=== PATIENT | male | born 1935 | race African-American/Black ===

== ENCOUNTER 2017-06-27 13:16 | Emergency (ER) | payer MEDICARE ==
[~2017-06-27] VITALS: Ht 180.3 cm; Wt 80.0 kg
[~2017-06-27 13:16] MED LIST: AMLO10TA80 PO; ASPI-1159 PO; BACL-141 PO; CLON1PAT8 TD; HYDR-4133 PO; LOSA100T14 PO; METO100T5 PO; MULT1TAB11 PO; OMEP20CA10 PO; OXYB5TAB11 PO; SIMV20TA6 PO; TRAM50TA3 PO; TRAZ-129 PO; VENL-180 PO
[2017-06-27] MEDS ORDERED: KETOROLAC 30MG/ML VIAL IV ONE (13:45)
[2017-06-27] MEDS ORDERED: ACETAMINOPHEN 325MG TABLET PO ONE (15:45)
[2017-06-27 16:30] VITALS: BP 172/112
== END 2017-06-27 17:55 | disposition home or self-care (01) ==
LOC: ER 13:16
DX: R51 Headache (principal); M54.5 Low back pain; M54.2 Cervicalgia; M25.551 Pain in right hip; I10 Essential (primary) hypertension; Z79.82 Long term (current) use of aspirin; Z88.0 Allergy status to penicillin
CPT/HCPCS: 70450; 72125; 72170; 96374; 99284; J1885

== ENCOUNTER 2017-07-01 10:52 | Emergency (ER) | payer MEDICARE ==
[~2017-07-01] VITALS: Ht 175.3 cm; Wt 85.0 kg
[2017-07-01] MEDS ORDERED: KETOROLAC 30MG/ML VIAL IV STA (11:09)
[2017-07-01] MEDS ORDERED: SODIUM CHLORIDE 0.9% 1,000 ML IV ONE (11:09)
[2017-07-01] MEDS ORDERED: METOCLOPRAMIDE HCL 10MG/2ML VIAL IV ONE (11:15)
[2017-07-01] MEDS ORDERED: TRAMADOL 50MG TABLET PO ONE (11:15)
[2017-07-01 15:22] VITALS: BP 148/86
== END 2017-07-01 15:23 | disposition home or self-care (01) ==
LOC: ER 10:52
DX: R51 Headache (principal); W08.XXXA Fall from other furniture, initial encounter; Y93.89 Activity, other specified; Y92.89 Other specified places as the place of occurrence of the external cause; F41.9 Anxiety disorder, unspecified; I51.9 Heart disease, unspecified; J45.909 Unspecified asthma, uncomplicated; E11.9 Type 2 diabetes mellitus without complications; I10 Essential (primary) hypertension; Z88.0 Allergy status to penicillin; Z88.6 Allergy status to analgesic agent; Z79.82 Long term (current) use of aspirin; Z86.73 Personal history of transient ischemic attack (TIA), and cerebral infarction without residual deficits
CPT/HCPCS: 96361; 96374; 96375; 99285; J1885; J2765; J7030

== ENCOUNTER 2017-12-17 17:04 | Inpatient (IN) | payer MEDICARE ==
[~2017-12-17] VITALS: Ht 177.8 cm; Wt 74.8 kg
[~2017-12-17 17:04] MED LIST changes: +METO100T16 PO; -METO100T5 PO
[2017-12-17] MEDS ORDERED: LORAZEPAM 1MG TABLET PO ONE (20:00)
[2017-12-17 20:58] LABS: BASOPHILS % 0.5 % (0.0-2.0); CHLORIDE 107 mEq/L (98-107); EOSINOPHILS % 0.9 % (0.0-5.0); HEMATOCRIT. 37.8 % (42.0-52.0); HEMOGLOBIN. 12.4 g/dL (14.0-18.0); LYMPHOCYTES % 21.2 % (20.0-50.0); MEAN CORPUSCULAR HEMOGLOBIN 27.9 pg (28.0-32.0); MEAN PLATELET VOLUME 6.9 fl (7.4-10.4); MONOCYTES % 7.1 % (2.0-8.0); NEUTROPHILS % 70.3 % (40.0-76.0); PLATELET 269 x1000/uL (130-400); RED BLOOD CELL COUNT 4.45 mill/uL (4.7-6.1); RED CELL DISTRIBUTION WIDTH 16.1 % (11.6-14.6)
[2017-12-17 21:03] LABS: ETHANOL BLOOD < 10 mg/dL
[2017-12-18] MEDS ORDERED: LORAZEPAM 2MG/ML CPJ IV ONE (01:45)
[2017-12-18] MEDS ORDERED: CALCIUM CHLORIDE 1GM/10ML SYR IV SCH (02:36)
[2017-12-18] MEDS ORDERED: DEXTROSE 50% WATER 50ML SYRINGE IV SCH (02:36)
[2017-12-18] MEDS ORDERED: INSULIN REGULAR (HUMULIN R) 300UNITS/3ML IV SCH (02:36)
[2017-12-18] MEDS ORDERED: SODIUM BICARBONATE 8.4% 1 MEQ/ML 50ML SYR IV SCH (02:36)
[2017-12-18] MEDS ORDERED: DEXTROSE 50% WATER 50ML SYRINGE IV ONE (03:00)
[2017-12-18 05:10] LABS: CLARITY URINE CLEAR (CLEAR); COLOR URINE YELLOW (YELLOW); KETONES URINE NEGATIVE (NEGATIVE); LEUKOCYTE ESTERASE URINE NEGATIVE (NEGATIVE); NITRITE URINE NEGATIVE (NEGATIVE); OCCULT BLOOD URINE NEGATIVE (NEGATIVE); PH URINE 8.5 (4.5-8.0); PROTEIN URINE 2+ (NEGATIVE); SPECIFIC GRAVITY URINE 1.014 (1.005-1.030)
[2017-12-18 05:15] LABS: *AMPHETAMINES SCREEN URINE NEGATIVE (NEGATIVE); *BARBITURATES SCREEN URINE NEGATIVE (NEGATIVE); *BENZODIAZEPINES SCREEN URINE NEGATIVE (NEGATIVE); *COCAINE SCREEN URINE NEGATIVE (NEGATIVE); CANNABINOID URINE SCREEN NEGATIVE (NEGATIVE); METHADONE URINE SCREEN NEGATIVE (NEGATIVE); OPIATES URINE SCREEN NEGATIVE (NEGATIVE); PHENCYCLIDINE URINE SCREEN NEGATIVE (NEGATIVE)
[2017-12-18 09:00] VITALS: BP 157/80
[2017-12-18 12:05] VITALS: BP 176/106
[2017-12-18] MEDS ORDERED: IPRATROPIUM/ALBUTEROL 0.5-3(2.5)MG/3ML NEB INH PRN (12:15)
[2017-12-18] MEDS ORDERED: HYDROCODONE/ACETAMINOPHEN 5/325MG TABLET PO PRN (12:15)
[2017-12-18] MEDS ORDERED: TRAZODONE HCL 50MG TABLET PO PRN (12:15)
[2017-12-18] MEDS ORDERED: ONDANSETRON HCL 4MG/2ML VIAL IV PRN (12:15)
[2017-12-18] MEDS ORDERED: ACETAMINOPHEN 325MG TABLET PO PRN (12:15)
[2017-12-18] MEDS ORDERED: ASPIRIN 81MG EC TABLET PO SCH (13:30)
[2017-12-18] MEDS: TRAMADOL 50MG TABLET PO PRN ×2 (13:44→19:44)
[2017-12-18] MEDS: AMLODIPINE 10MG TABLET PO SCH (13:44)
[2017-12-18] MEDS: LOSARTAN POTASSIUM 100 MG TABLET PO SCH (13:44)
[2017-12-18] MEDS: OXYBUTYNIN CHLORIDE 5MG TABLET PO SCH (13:45)
[2017-12-18] MEDS: OMEPRAZOLE 20MG CAPSULE EXTENDED RELEASE PO SCH (13:45)
[2017-12-18] MEDS: METOPROLOL TARTRATE 100MG TABLET PO SCH ×2 (13:45→19:42)
[2017-12-18] MEDS: HYDRALAZINE HCL 10MG TABLET PO SCH ×2 (13:45→19:43)
[2017-12-18] MEDS ORDERED: DEXTROSE 50% WATER 50ML SYRINGE IV PRN (14:45)
[2017-12-18 16:00] VITALS: BP 189/106
[2017-12-18 16:32] VITALS: BP 157/80
[2017-12-18 16:55] LABS: AMMONIA 39 uMol/L (<32)
[2017-12-18] MEDS: BLOOD SUGAR DIAGNOSTIC STRIP TEST SCH ×2 (17:01→19:57)
[2017-12-18] MEDS: INSULIN LISPRO 100 UNITS/ML SUBCUT SCH ×2 (17:05→19:57)
[2017-12-18] MEDS: ENOXAPARIN 30MG/0.3ML SYR SUBCUT SCH (17:24)
[2017-12-18] MEDS: CLONIDINE 0.1MG TABLET PO PRN (17:36)
[2017-12-18 17:41] LABS: VITAMIN B12 SERUM 773 pg/mL (211-911)
[2017-12-18] MEDS ORDERED: LACTULOSE 20G/30ML UDC PO NR (19:30)
[2017-12-18] MEDS: SODIUM CHLORIDE 0.9% 1,000 ML IV SCH (19:47)
[2017-12-18 20:00] VITALS: BP 187/95
[2017-12-19] VITALS (7 sets, daily range): BP systolic 152–190; BP diastolic 78–110
[2017-12-19] MEDS: CLONIDINE 0.1MG TABLET PO PRN ×2 (00:05→05:57)
[2017-12-19] MEDS: TRAMADOL 50MG TABLET PO PRN ×2 (00:05→06:00)
[2017-12-19] MEDS: OMEPRAZOLE 20MG CAPSULE EXTENDED RELEASE PO SCH (05:56)
[2017-12-19] MEDS: BLOOD SUGAR DIAGNOSTIC STRIP TEST SCH ×4 (06:23→21:00)
[2017-12-19 06:34] LABS: INR 1.1; PROTHROMBIN TIME 11.3 sec (9.4-11.6)
[2017-12-19 06:36] LABS: BASOPHILS % 0.8 % (0.0-2.0); EOSINOPHILS % 4.1 % (0.0-5.0); HEMATOCRIT 37.1 % (42.0-52.0); HEMATOCRIT. 37.1 % (42.0-52.0); HEMOGLOBIN 11.8 g/dL (14.0-18.0); HEMOGLOBIN. 11.8 g/dL (14.0-18.0); LYMPHOCYTES % 36.9 % (20.0-50.0); MEAN CORPUSCULAR HEMOGLOBIN 27.2 pg (28.0-32.0); MEAN CORPUSCULAR VOLUME 85.4 fL (80.0-94.0); NEUTROPHILS % 47.2 % (40.0-76.0); PLATELET 256 x1000/uL (130-400); RED BLOOD CELL COUNT 4.35 mill/uL (4.7-6.1); RED CELL DISTRIBUTION WIDTH 16.6 % (11.6-14.6)
[2017-12-19 06:48] LABS: CHLORIDE 107 mEq/L (98-107)
[2017-12-19 06:49] LABS: AMMONIA 26 uMol/L (<32)
[2017-12-19 06:59] LABS: HDL CHOLESTEROL 84 mg/dL (40-59); LDL CHOLESTEROL 54 mg/dL (5-100); T4 FREE 1.02 ng/dL (0.76-1.46)
[2017-12-19] MEDS: INSULIN LISPRO 100 UNITS/ML SUBCUT SCH ×4 (07:15→21:00)
[2017-12-19] MEDS: ASPIRIN 81MG EC TABLET PO SCH (08:28)
[2017-12-19] MEDS: AMLODIPINE 10MG TABLET PO SCH (08:29)
[2017-12-19] MEDS: LOSARTAN POTASSIUM 100 MG TABLET PO SCH (08:29)
[2017-12-19] MEDS: METOPROLOL TARTRATE 100MG TABLET PO SCH ×2 (08:29→20:38)
[2017-12-19] MEDS: OXYBUTYNIN CHLORIDE 5MG TABLET PO SCH (08:29)
[2017-12-19] MEDS: VENLAFAXINE HCL 75MG TABLET PO SCH (08:29)
[2017-12-19] MEDS: HYDRALAZINE HCL 10MG TABLET PO SCH ×2 (08:29→20:38)
[2017-12-19] MEDS: HYDRALAZINE 20MG/ML VIAL IV PRN (12:34)
[2017-12-19] MEDS: LORAZEPAM 2MG/ML CPJ IV PRN ×2 (14:06→20:35)
[2017-12-19] MEDS: ENOXAPARIN 30MG/0.3ML SYR SUBCUT SCH (14:09)
[2017-12-19] MEDS: SODIUM CHLORIDE 0.9% 1,000 ML IV SCH (16:45)
[2017-12-19] MEDS ORDERED: HALOPERIDOL LACTATE 5MG/ML VIAL IM NR ×2 (21:00→23:30)
[2017-12-20] VITALS (7 sets, daily range): BP systolic 151–199; BP diastolic 82–117
[2017-12-20] MEDS: HYDRALAZINE 20MG/ML VIAL IV PRN (01:07)
[2017-12-20] MEDS: OMEPRAZOLE 20MG CAPSULE EXTENDED RELEASE PO SCH (05:55)
[2017-12-20] MEDS: BLOOD SUGAR DIAGNOSTIC STRIP TEST SCH ×2 (05:56→11:50)
[2017-12-20] MEDS: CLONIDINE 0.1MG TABLET PO PRN (06:25)
[2017-12-20] MEDS: INSULIN LISPRO 100 UNITS/ML SUBCUT SCH ×2 (07:50→12:50)
[2017-12-20] MEDS ORDERED: RISPERIDONE 0.5MG TABLET PO SCH ×2 (09:00→21:00)
[2017-12-20] MEDS: OXYBUTYNIN CHLORIDE 5MG TABLET PO SCH (09:51)
[2017-12-20] MEDS: ASPIRIN 81MG EC TABLET PO SCH (09:51)
[2017-12-20] MEDS: VENLAFAXINE HCL 75MG TABLET PO SCH (09:52)
[2017-12-20] MEDS: METOPROLOL TARTRATE 100MG TABLET PO SCH (09:52)
[2017-12-20] MEDS: LOSARTAN POTASSIUM 100 MG TABLET PO SCH (09:52)
[2017-12-20] MEDS: AMLODIPINE 10MG TABLET PO SCH (09:52)
[2017-12-20 10:19] LABS: HEMOGLOBIN 12.9 g/dL (14.0-18.0); MEAN CORPUSCULAR HEMOGLOBIN 28.1 pg (28.0-32.0); MEAN CORPUSCULAR VOLUME 84.8 fL (80.0-94.0); PLATELET 272 x1000/uL (130-400); RED BLOOD CELL COUNT 4.59 mill/uL (4.7-6.1); RED CELL DISTRIBUTION WIDTH 16.2 % (11.6-14.6)
[2017-12-20] MEDS: SODIUM CHLORIDE 0.9% 1,000 ML IV SCH (11:30)
[2017-12-20] MEDS: HYDRALAZINE HCL 10MG TABLET PO SCH (11:50)
[2017-12-20] MEDS: ENOXAPARIN 30MG/0.3ML SYR SUBCUT SCH (16:34)
== END 2017-12-20 17:30 | DRG 682 ==
LOC: ER 17:37 → 6WST 12-18 00:27 → ENRESERV 12-18 07:43
PROVIDERS: ADMIT Internal Medicine; ATTEND Internal Medicine
DX: N17.9 Acute kidney failure, unspecified (principal); G92 Toxic encephalopathy; E72.20 Disorder of urea cycle metabolism, unspecified; E11.22 Type 2 diabetes mellitus with diabetic chronic kidney disease; E87.5 Hyperkalemia; M62.82 Rhabdomyolysis; N18.4 Chronic kidney disease, stage 4 (severe); G30.9 Alzheimer's disease, unspecified; D64.9 Anemia, unspecified; F32.9 Major depressive disorder, single episode, unspecified; G89.4 Chronic pain syndrome; F02.80 Dementia in other diseases classified elsewhere, unspecified severity, without behavioral disturbance, psychotic disturbance, mood disturbance, and anxiety; F41.9 Anxiety disorder, unspecified; I12.9 Hypertensive chronic kidney disease with stage 1 through stage 4 chronic kidney disease, or unspecified chronic kidney disease; R41.0 Disorientation, unspecified; J45.909 Unspecified asthma, uncomplicated; M13.0 Polyarthritis, unspecified; Z86.73 Personal history of transient ischemic attack (TIA), and cerebral infarction without residual deficits; Z88.0 Allergy status to penicillin; Z88.6 Allergy status to analgesic agent; Z79.82 Long term (current) use of aspirin; Z79.899 Other long term (current) drug therapy
CPT/HCPCS: 36415; 70450; 71045; 76775; 80048; 80053; 80061; 80305; 81003; 82140; 82550; 82607; 82962; 84439; 84443; 84484; 85025; 85027; 85610; 86592; 93005; 93306; 96374; 96375; 97116; 97162; 99285; C1893; G0482; J0360; J1630; J1650; J1815; J2060; J3490; J7030

== ENCOUNTER 2018-07-01 10:02 | Emergency (ER) | payer MEDICARE ==
[~2018-07-01] VITALS: Ht 180.3 cm; Wt 76.0 kg
[~2018-07-01 10:02] MED LIST changes: -BACL-141 PO; -HYDR-4133 PO; -LOSA100T14 PO; -METO100T16 PO; -MULT1TAB11 PO; -TRAZ-129 PO; +TRAZ-212 PO
[2018-07-01] MEDS ORDERED: ONDANSETRON HCL 4MG/2ML INJ IV STA (10:22)
[2018-07-01] MEDS ORDERED: MORPHINE SULFATE 4 MG/ML CPJ (NOT FOR IM USE) IV STA (10:22)
[2018-07-01] MEDS ORDERED: SODIUM CHLORIDE 0.9% 1,000 ML IV ONE (10:22)
[2018-07-01 11:47] LABS: BASOPHILS % 0.6 % (0.0-2.0); EOSINOPHILS % 2.2 % (0.0-5.0); HEMATOCRIT. 30.1 % (42.0-52.0); HEMOGLOBIN. 9.9 g/dL (14.0-18.0); LYMPHOCYTES % 24.7 % (20.0-50.0); MEAN CORPUSCULAR HEMOGLOBIN 28.2 pg (28.0-32.0); MEAN CORPUSCULAR VOLUME 85.8 fL (80.0-94.0); MEAN PLATELET VOLUME 7.1 fl (7.4-10.4); MONOCYTES % 10.3 % (2.0-8.0); NEUTROPHILS % 62.2 % (40.0-76.0); PLATELET 253 x1000/uL (130-400); RED CELL DISTRIBUTION WIDTH 15.9 % (11.6-14.6)
[2018-07-01 11:52] LABS: CHLORIDE 105 mEq/L (98-107); CLARITY URINE CLOUDY (CLEAR); COLOR URINE DARK YELLOW (YELLOW); KETONES URINE TRACE (NEGATIVE); LEUKOCYTE ESTERASE URINE NEGATIVE (NEGATIVE); NITRITE URINE NEGATIVE (NEGATIVE); OCCULT BLOOD URINE 2+ (NEGATIVE); PROTEIN URINE 2+ (NEGATIVE); SPECIFIC GRAVITY URINE 1.017 (1.005-1.030)
[2018-07-01 15:54] VITALS: BP 130/66
== END 2018-07-01 15:56 | disposition home or self-care (01) ==
LOC: ER 10:02
DX: R10.84 Generalized abdominal pain (principal); E11.22 Type 2 diabetes mellitus with diabetic chronic kidney disease; I12.9 Hypertensive chronic kidney disease with stage 1 through stage 4 chronic kidney disease, or unspecified chronic kidney disease; N18.9 Chronic kidney disease, unspecified; D63.1 Anemia in chronic kidney disease; K57.90 Diverticulosis of intestine, part unspecified, without perforation or abscess without bleeding; Z88.0 Allergy status to penicillin; Z79.82 Long term (current) use of aspirin; Z98.1 Arthrodesis status
CPT/HCPCS: 36415; 71045; 74018; 74176; 80053; 81003; 83690; 85025; 93005; 96361; 96374; 96375; 99285; J2270; J2405; J7030; A4315

== ENCOUNTER 2018-09-04 08:36 | Inpatient (IN) | payer MEDICARE ==
[~2018-09-04] VITALS: Ht 182.9 cm; Wt 89.4 kg
[2018-09-04] MEDS ORDERED: KETOROLAC 15MG/ML VIAL IV ONE (10:30)
[2018-09-04] MEDS ORDERED: ONDANSETRON HCL 4MG/2ML INJ IV STA (10:30)
[2018-09-04] MEDS ORDERED: SODIUM CHLORIDE 0.9% 1,000 ML IV ONE (10:30)
[2018-09-04 12:01] LABS: CLARITY URINE CLEAR (CLEAR); COLOR URINE YELLOW (YELLOW); KETONES URINE NEGATIVE (NEGATIVE); LEUKOCYTE ESTERASE URINE 2+ (NEGATIVE); NITRITE URINE NEGATIVE (NEGATIVE); OCCULT BLOOD URINE 2+ (NEGATIVE); PROTEIN URINE 2+ (NEGATIVE); SPECIFIC GRAVITY URINE 1.009 (1.005-1.030); UROBILINOGEN URINE 0.2 E.U./dL (0.2-1.0)
[2018-09-04] MEDS ORDERED: LEVOFLOXACIN 750MG PREMIX 150 ML IV ONE (13:00)
[2018-09-04 13:41] LABS: BASOPHILS % 0.7 % (0.0-2.0); EOSINOPHILS % 1.3 % (0.0-5.0); HEMATOCRIT. 33.6 % (42.0-52.0); LYMPHOCYTES % 19.8 % (20.0-50.0); MEAN CORPUSCULAR VOLUME 85.8 fL (80.0-94.0); MEAN PLATELET VOLUME 7.1 fl (7.4-10.4); NEUTROPHILS % 70.2 % (40.0-76.0); PLATELET 263 x1000/uL (130-400); RED BLOOD CELL COUNT 3.91 mill/uL (4.7-6.1); RED CELL DISTRIBUTION WIDTH 15.8 % (11.6-14.6)
[2018-09-04 13:50] LABS: INR 1.1; PROTHROMBIN TIME 10.7 sec (9.1-11.1)
[2018-09-04 14:04] LABS: CHLORIDE 106 mEq/L (98-107)
[2018-09-04] MEDS ORDERED: MORPHINE SULFATE 4 MG/ML CPJ (NOT FOR IM USE) IV ONE (14:30)
[2018-09-04] MEDS ORDERED: ONDANSETRON HCL 4MG/2ML INJ IV ONE (14:30)
[2018-09-04] MEDS ORDERED: LORAZEPAM 2MG/ML CPJ IV ONE (14:30)
[2018-09-04] MEDS ORDERED: LORAZEPAM 0.5MG TABLET PO PRN (18:15)
[2018-09-04] MEDS ORDERED: ONDANSETRON HCL 4MG/2ML INJ IV PRN (18:15)
[2018-09-04] MEDS ORDERED: DIPHENHYDRAMINE 50MG/ML VIAL IV PRN (18:15)
[2018-09-04] MEDS ORDERED: NA PHOS,M-B/NA PHOS,DI-BA ENEMA 118ML PR PRN (18:15)
[2018-09-04] MEDS ORDERED: MAGNESIUM/ALUMINUM HYDROXIDE/SIMETHICONE 30ML UDC PO PRN (18:15)
[2018-09-04] MEDS ORDERED: GUAIFENESIN 200MG/10ML SUGAR FREE UDC PO PRN (18:15)
[2018-09-04] MEDS ORDERED: ACETAMINOPHEN 650MG SUPP PR PRN (18:15)
[2018-09-04 20:29] LABS: BG BASE EXCESS -6.8 mmol/L (-2.0-2.0); BG CARBOXYHEMOGLOBIN 1.1 % (0.5-1.5); BG DEOXYHEMOGLOBIN 2.4 % (0.0-5.0); BG FRACTION INSPIRED OXYGEN 21; BG HCO3 ACT 16.7 mmol/L (22.0-26.0); BG METHEMOGLOBIN 0.3 % (0.0-1.5); BG OXYGEN SATURATION 97.6 % (92.0-98.5); BG OXYHEMOGLOBIN 96.2 % (94.0-97.0); BG PH 7.408 (7.350-7.450); BG PO2 100.9 mmHg (75.0-100.0); BG SAMPLE SITE LEFT RADIAL; BG TOTAL HEMOGLOBIN 10.8 g/dL (12.0-18.0); BG VENT MODE ROOM AIR
[2018-09-04 23:30] VITALS: BP 167/75
[2018-09-05] VITALS (8 sets, daily range): BP systolic 169–214; BP diastolic 84–130
[2018-09-05] MEDS: ACETAMINOPHEN 325MG TABLET PO PRN ×2 (00:10→01:29)
[2018-09-05] MEDS: SODIUM CHLORIDE 0.45% 1,000 ML IV SCH ×2 (00:10→13:43)
[2018-09-05] MEDS: DOCUSATE SODIUM 100MG CAPSULE PO PRN (01:29)
[2018-09-05] MEDS: CLONIDINE 0.1MG TABLET PO PRN ×2 (06:08→16:32)
[2018-09-05] MEDS: ENOXAPARIN 30MG/0.3ML SYR SUBCUT SCH (06:08)
[2018-09-05 08:17] LABS: BASOPHILS % 0.6 % (0.0-2.0); EOSINOPHILS % 3.3 % (0.0-5.0); HEMATOCRIT. 30.7 % (42.0-52.0); HEMOGLOBIN. 10.1 g/dL (14.0-18.0); LYMPHOCYTES % 23.6 % (20.0-50.0); MEAN CORPUSCULAR HEMOGLOBIN 28.4 pg (28.0-32.0); MEAN CORPUSCULAR VOLUME 86.1 fL (80.0-94.0); MEAN PLATELET VOLUME 7.3 fl (7.4-10.4); MONOCYTES % 9.8 % (2.0-8.0); NEUTROPHILS % 62.7 % (40.0-76.0); PLATELET 212 x1000/uL (130-400); RED BLOOD CELL COUNT 3.57 mill/uL (4.7-6.1); RED CELL DISTRIBUTION WIDTH 16.2 % (11.6-14.6)
[2018-09-05 08:36] LABS: METHADONE URINE SCREEN NEGATIVE (NEGATIVE); OPIATES URINE SCREEN NEGATIVE (NEGATIVE)
[2018-09-05 08:37] LABS: *AMPHETAMINES SCREEN URINE NEGATIVE (NEGATIVE); *BARBITURATES SCREEN URINE NEGATIVE (NEGATIVE); *BENZODIAZEPINES SCREEN URINE NEGATIVE (NEGATIVE); CANNABINOID URINE SCREEN NEGATIVE (NEGATIVE); PHENCYCLIDINE URINE SCREEN NEGATIVE (NEGATIVE)
[2018-09-05 08:38] LABS: *COCAINE SCREEN URINE NEGATIVE (NEGATIVE)
[2018-09-05] MEDS: ASPIRIN 81MG EC TABLET PO SCH (08:38)
[2018-09-05 08:59] LABS: CHLORIDE 110 mEq/L (98-107)
[2018-09-05 09:06] LABS: LDL CHOLESTEROL 41 mg/dL (5-100)
[2018-09-05 09:07] LABS: HDL CHOLESTEROL 66 mg/dL (40-59)
[2018-09-05] MEDS: LEVOFLOXACIN 250MG PREMIX 50 ML IV SCH (13:42)
[2018-09-05] MEDS: HYDRALAZINE HCL 50MG TABLET PO SCH ×2 (13:43→19:57)
[2018-09-05] MEDS: MORPHINE SULFATE 10MG/5ML ORAL SOLN UDC PO PRN ×2 (13:44→19:58)
[2018-09-05] MEDS: CLONIDINE 0.3MG TABLET PO SCH (19:57)
[2018-09-06] VITALS (8 sets, daily range): BP systolic 161–219; BP diastolic 99–116
[2018-09-06] MEDS ORDERED: LABETALOL HCL 20MG/4ML CARPUJECT IV PRN
[2018-09-06] MEDS: HYDRALAZINE HCL 50MG TABLET PO SCH ×3 (04:42→21:01)
[2018-09-06] MEDS: CLONIDINE 0.3MG TABLET PO SCH ×3 (04:42→21:02)
[2018-09-06 07:04] LABS: BASOPHILS % 0.7 % (0.0-2.0); HEMATOCRIT. 31.4 % (42.0-52.0); LYMPHOCYTES % 20.5 % (20.0-50.0); MEAN CORPUSCULAR HEMOGLOBIN 27.9 pg (28.0-32.0); MEAN CORPUSCULAR VOLUME 87.9 fL (80.0-94.0); MEAN PLATELET VOLUME 7.9 fl (7.4-10.4); MONOCYTES % 11.4 % (2.0-8.0); NEUTROPHILS % 64.4 % (40.0-76.0); PLATELET 161 x1000/uL (130-400); RED BLOOD CELL COUNT 3.58 mill/uL (4.7-6.1); RED CELL DISTRIBUTION WIDTH 16.5 % (11.6-14.6)
[2018-09-06] MEDS: ASPIRIN 81MG EC TABLET PO SCH (08:11)
[2018-09-06] MEDS: ENOXAPARIN 30MG/0.3ML SYR SUBCUT SCH (08:11)
[2018-09-06 08:15] LABS: CHLORIDE 109 mEq/L (98-107)
[2018-09-06] MEDS: LEVOFLOXACIN 250MG PREMIX 50 ML IV SCH (13:26)
[2018-09-06] MEDS ORDERED: SODIUM BICARBONATE 8.4% 1 MEQ/ML 50ML SYR IV NR (14:30)
[2018-09-06] MEDS: LABETALOL HCL 100MG TABLET PO SCH (21:01)
[2018-09-07] VITALS (8 sets, daily range): BP systolic 151–216; BP diastolic 73–112
[2018-09-07] MEDS: ACETAMINOPHEN 325MG TABLET PO PRN (03:40)
[2018-09-07] MEDS: CLONIDINE 0.3MG TABLET PO SCH ×3 (05:10→21:07)
[2018-09-07] MEDS: HYDRALAZINE HCL 50MG TABLET PO SCH ×3 (05:10→21:06)
[2018-09-07] MEDS: ENOXAPARIN 30MG/0.3ML SYR SUBCUT SCH (08:43)
[2018-09-07] MEDS: ASPIRIN 81MG EC TABLET PO SCH (08:43)
[2018-09-07] MEDS: LABETALOL HCL 100MG TABLET PO SCH ×2 (08:43→20:42)
[2018-09-07] MEDS: DOCUSATE SODIUM 100MG CAPSULE PO PRN (08:52)
[2018-09-07 13:19] LABS: HEMATOCRIT 29.9 % (42.0-52.0); HEMOGLOBIN 9.8 g/dL (14.0-18.0); MEAN CORPUSCULAR HEMOGLOBIN 28.1 pg (28.0-32.0); MEAN CORPUSCULAR VOLUME 85.7 fL (80.0-94.0); PLATELET 246 x1000/uL (130-400); RED BLOOD CELL COUNT 3.49 mill/uL (4.7-6.1); RED CELL DISTRIBUTION WIDTH 15.7 % (11.6-14.6)
[2018-09-07] MEDS: AMLODIPINE 5MG TABLET PO SCH (14:11)
[2018-09-07] MEDS: LEVOFLOXACIN 250MG PREMIX 50 ML IV SCH (14:12)
[2018-09-07] MEDS: IPRATROPIUM/ALBUTEROL 0.5-3(2.5)MG/3ML NEB INH PRN ×2 (15:49→20:33)
[2018-09-07] MEDS: HYDRALAZINE 20MG/ML VIAL IV PRN (18:42)
[2018-09-07] MEDS: SODIUM BICARBONATE 650 MG TABLET PO SCH (20:42)
[2018-09-07] MEDS ORDERED: LEVO500T2 MT (21:46)
[2018-09-08] VITALS (7 sets, daily range): BP systolic 131–160; BP diastolic 76–94
[2018-09-08] MEDS: CLONIDINE 0.3MG TABLET PO SCH ×2 (05:33→14:46)
[2018-09-08] MEDS: HYDRALAZINE HCL 50MG TABLET PO SCH ×2 (05:34→14:46)
[2018-09-08 07:00] LABS: HEMATOCRIT 28.8 % (42.0-52.0); HEMOGLOBIN 9.5 g/dL (14.0-18.0); MEAN CORPUSCULAR HEMOGLOBIN 28.1 pg (28.0-32.0); MEAN CORPUSCULAR VOLUME 85.5 fL (80.0-94.0); PLATELET 244 x1000/uL (130-400); RED BLOOD CELL COUNT 3.36 mill/uL (4.7-6.1); RED CELL DISTRIBUTION WIDTH 15.5 % (11.6-14.6)
[2018-09-08] MEDS: ASPIRIN 81MG EC TABLET PO SCH (08:56)
[2018-09-08] MEDS: ENOXAPARIN 30MG/0.3ML SYR SUBCUT SCH (08:57)
[2018-09-08] MEDS: SODIUM BICARBONATE 650 MG TABLET PO SCH ×2 (08:57→17:08)
[2018-09-08] MEDS: AMLODIPINE 5MG TABLET PO SCH (08:57)
[2018-09-08] MEDS: LABETALOL HCL 100MG TABLET PO SCH (08:57)
[2018-09-08] MEDS: DOCUSATE SODIUM 100MG CAPSULE PO PRN (08:58)
[2018-09-08] MEDS: LEVOFLOXACIN 250MG PREMIX 50 ML IV SCH (12:32)
[2018-09-08] MEDS ORDERED: LACTULOSE 20G/30ML UDC PO NR (13:30)
[2018-09-08] MEDS: DOCUSATE SODIUM 100MG CAPSULE PO SCH ×2 (14:46→17:08)
[2018-09-08] MEDS: HYDRALAZINE 20MG/ML VIAL IV PRN (17:08)
== END 2018-09-08 19:35 | disposition home health service (06) | DRG 699 ==
LOC: ER 09:03 → 8WST 14:38 → ENRESERV 21:46
PROVIDERS: ADMIT Internal Medicine; ATTEND Internal Medicine
PROC: 02HV33Z Insertion of Infusion Device into Superior Vena Cava, Percutaneous Approach (ICD-10-PCS; principal; 2018-09-07)
PROC: B518ZZA Fluoroscopy of Superior Vena Cava, Guidance (ICD-10-PCS; 2018-09-07)
PROC: B548ZZA Ultrasonography of Superior Vena Cava, Guidance (ICD-10-PCS; 2018-09-07)
DX: T83.518A Infection and inflammatory reaction due to other urinary catheter, initial encounter (principal); G93.40 Encephalopathy, unspecified; N17.9 Acute kidney failure, unspecified; N39.0 Urinary tract infection, site not specified; E87.3 Alkalosis; D64.9 Anemia, unspecified; R80.9 Proteinuria, unspecified; R73.9 Hyperglycemia, unspecified; I12.9 Hypertensive chronic kidney disease with stage 1 through stage 4 chronic kidney disease, or unspecified chronic kidney disease; N18.9 Chronic kidney disease, unspecified; B96.89 Other specified bacterial agents as the cause of diseases classified elsewhere; F03.90 Unspecified dementia, unspecified severity, without behavioral disturbance, psychotic disturbance, mood disturbance, and anxiety; J45.909 Unspecified asthma, uncomplicated; R33.9 Retention of urine, unspecified; K59.00 Constipation, unspecified; K40.90 Unilateral inguinal hernia, without obstruction or gangrene, not specified as recurrent; Y84.6 Urinary catheterization as the cause of abnormal reaction of the patient, or of later complication, without mention of misadventure at the time of the procedure; Z86.73 Personal history of transient ischemic attack (TIA), and cerebral infarction without residual deficits; Z90.5 Acquired absence of kidney; Z98.1 Arthrodesis status; Z85.46 Personal history of malignant neoplasm of prostate; Z88.0 Allergy status to penicillin; Z88.6 Allergy status to analgesic agent; Z79.82 Long term (current) use of aspirin; Z79.899 Other long term (current) drug therapy; Y92.89 Other specified places as the place of occurrence of the external cause
CPT/HCPCS: 36415; 36569; 36600; 71045; 74176; 76770; 76937; 77001; 80048; 80061; 80305; 82140; 82375; 82805; 85027; 87077; 87186; 93005; 96365; 96375; 97116; 97162; 99285; C1725; C1893; J0360; J1200; J1650; J1885; J1956; J2060; J2405; J3490; J7030; J7040; J7620; A4315

== ENCOUNTER 2018-12-20 05:50 | Inpatient (IN) | payer MEDICARE ==
[~2018-12-20] VITALS: Ht 177.8 cm; Wt 72.1 kg
[~2018-12-20 05:50] MED LIST changes: +LEVO500T2 MT
[2018-12-20] MEDS ORDERED: SODIUM CHLORIDE 0.9% 1,000 ML IV ONE (06:42)
[2018-12-20] MEDS ORDERED: FENTANYL CITRATE/PF 50MCG/ML 2ML VIAL IV ONE ×3 (07:00→10:45)
[2018-12-20 07:22] LABS: CHLORIDE 112 mEq/L (98-107)
[2018-12-20 07:47] LABS: HEMATOCRIT. 32.9 % (42.0-52.0); HEMOGLOBIN. 10.7 g/dL (14.0-18.0); MEAN CORPUSCULAR HEMOGLOBIN 27.3 pg (28.0-32.0); MEAN CORPUSCULAR VOLUME 84.1 fL (80.0-94.0); MEAN PLATELET VOLUME 7.1 fl (7.4-10.4); PLATELET 257 x1000/uL (130-400); RED BLOOD CELL COUNT 3.92 mill/uL (4.7-6.1); RED CELL DISTRIBUTION WIDTH 17.4 % (11.6-14.6)
[2018-12-20 08:30] LABS: PLATELET ESTIMATE NORMAL
[2018-12-20 08:58] LABS: CLARITY URINE CLEAR (CLEAR); COLOR URINE YELLOW (YELLOW); KETONES URINE NEGATIVE (NEGATIVE); LEUKOCYTE ESTERASE URINE NEGATIVE (NEGATIVE); NITRITE URINE NEGATIVE (NEGATIVE); OCCULT BLOOD URINE 1+ (NEGATIVE); PH URINE 7.5 (4.5-8.0); PROTEIN URINE 2+ (NEGATIVE); SPECIFIC GRAVITY URINE 1.011 (1.005-1.030); UROBILINOGEN URINE 0.2 E.U./dL (0.2-1.0)
[2018-12-20] MEDS ORDERED: ONDANSETRON HCL 4MG/2ML INJ IV PRN (12:00)
[2018-12-20] MEDS ORDERED: DIPHENHYDRAMINE 50MG/ML VIAL IV PRN (12:00)
[2018-12-20] MEDS ORDERED: MAGNESIUM/ALUMINUM HYDROXIDE/SIMETHICONE 30ML UDC PO PRN (12:00)
[2018-12-20] MEDS ORDERED: IPRATROPIUM/ALBUTEROL 0.5-3(2.5)MG/3ML NEB INH PRN (12:00)
[2018-12-20] MEDS ORDERED: GUAIFENESIN 200MG/10ML SUGAR FREE UDC PO PRN (12:00)
[2018-12-20] MEDS: CLONIDINE 0.1MG TABLET PO SCH ×2 (12:54→21:54)
[2018-12-20] MEDS: OMEPRAZOLE 20MG CAPSULE EXTENDED RELEASE PO SCH (13:09)
[2018-12-20] MEDS: AMLODIPINE 10MG TABLET PO SCH (13:09)
[2018-12-20] MEDS: ASPIRIN 81MG TABLET PO SCH (13:09)
[2018-12-20] MEDS: CLONIDINE 0.1MG TABLET PO PRN (13:10)
[2018-12-20] MEDS: DEXT 5%/0.45% NACL 1000ML 1,000 ML IV SCH (13:16)
[2018-12-20] MEDS ORDERED: LEVOFLOXACIN 500MG PREMIX 100 ML IV SCH (14:00)
[2018-12-20] MEDS ORDERED: METRONIDAZOLE 500MG TABLET PO SCH (14:00)
[2018-12-20 14:32] LABS: *AMPHETAMINES SCREEN URINE NEGATIVE (NEGATIVE); *BARBITURATES SCREEN URINE NEGATIVE (NEGATIVE); *BENZODIAZEPINES SCREEN URINE NEGATIVE (NEGATIVE); *COCAINE SCREEN URINE NEGATIVE (NEGATIVE); METHADONE URINE SCREEN NEGATIVE (NEGATIVE); OPIATES URINE SCREEN NEGATIVE (NEGATIVE); PHENCYCLIDINE URINE SCREEN NEGATIVE (NEGATIVE)
[2018-12-20 14:33] LABS: CANNABINOID URINE SCREEN NEGATIVE (NEGATIVE)
[2018-12-20 16:00] VITALS: BP 216/111
[2018-12-20] MEDS: NITROGLYCERIN OINT 1GM/INCH UDPKT TD SCH (16:11)
[2018-12-20 16:15] VITALS: BP 206/111
[2018-12-20 16:47] VITALS: BP 180/99
[2018-12-20 17:00] VITALS: BP 180/92
[2018-12-20] MEDS ORDERED: HYDRALAZINE 20MG/ML VIAL IV PRN (17:45)
[2018-12-20] MEDS: ACETAMINOPHEN 325MG TABLET PO PRN (18:13)
[2018-12-20 19:00] VITALS: BP 161/88
[2018-12-20 20:00] VITALS: BP 144/89
[2018-12-20] MEDS ORDERED: MEDICATION NOT ON FORMULARY EA (Simvastatin 20 MG) PO SCH (21:00)
[2018-12-20] MEDS ORDERED: HYDROCODONE/ACETAMINOPHEN 5/325MG TABLET PO NR (21:15)
[2018-12-20] MEDS: METRONIDAZOLE 500MG TABLET PO SCH (21:54)
[2018-12-20] MEDS: ATORVASTATIN CALCIUM 10MG TABLET PO SCH (21:55)
[2018-12-20] MEDS: HYDRALAZINE HCL 50MG TABLET PO SCH (21:55)
[2018-12-20] MEDS: HEPARIN 5000 UNITS/ML VIAL SUBCUT SCH (21:56)
[2018-12-21] VITALS: BP 138/60
[2018-12-21] MEDS: NITROGLYCERIN OINT 1GM/INCH UDPKT TD SCH ×4 (00:11→17:29)
[2018-12-21 04:00] VITALS: BP 118/60
[2018-12-21] MEDS: HYDRALAZINE HCL 50MG TABLET PO SCH ×3 (05:16→20:40)
[2018-12-21] MEDS: CLONIDINE 0.1MG TABLET PO SCH ×3 (05:16→20:40)
[2018-12-21] MEDS: DEXT 5%/0.45% NACL 1000ML 1,000 ML IV SCH ×2 (05:40→20:41)
[2018-12-21 05:54] LABS: BASOPHILS % 0.8 % (0.0-2.0); EOSINOPHILS % 4.4 % (0.0-5.0); HEMATOCRIT. 28.5 % (42.0-52.0); HEMOGLOBIN. 9.1 g/dL (14.0-18.0); LYMPHOCYTES % 35.8 % (20.0-50.0); MEAN CORPUSCULAR HEMOGLOBIN 27.3 pg (28.0-32.0); MEAN CORPUSCULAR VOLUME 85.6 fL (80.0-94.0); MEAN PLATELET VOLUME 7.5 fl (7.4-10.4); MONOCYTES % 10.4 % (2.0-8.0); NEUTROPHILS % 48.6 % (40.0-76.0); PLATELET 212 x1000/uL (130-400); RED BLOOD CELL COUNT 3.33 mill/uL (4.7-6.1); RED CELL DISTRIBUTION WIDTH 17.2 % (11.6-14.6)
[2018-12-21 06:00] VITALS: BP 118/60
[2018-12-21] MEDS: OMEPRAZOLE 20MG CAPSULE EXTENDED RELEASE PO SCH (06:11)
[2018-12-21] MEDS: ACETAMINOPHEN 325MG TABLET PO PRN ×2 (06:26→13:59)
[2018-12-21 07:12] LABS: CHLORIDE 112 mEq/L (98-107)
[2018-12-21 07:22] LABS: HDL CHOLESTEROL 63 mg/dL (40-59); LDL CHOLESTEROL 52 mg/dL (5-100)
[2018-12-21 07:24] LABS: T4 FREE 0.97 ng/dL (0.76-1.46)
[2018-12-21 08:00] VITALS: BP 155/94
[2018-12-21] MEDS: HEPARIN 5000 UNITS/ML VIAL SUBCUT SCH ×2 (08:40→20:40)
[2018-12-21] MEDS: METRONIDAZOLE 500MG TABLET PO SCH ×2 (08:40→20:40)
[2018-12-21] MEDS: AMLODIPINE 10MG TABLET PO SCH (08:40)
[2018-12-21] MEDS: ASPIRIN 81MG TABLET PO SCH (08:40)
[2018-12-21 16:00] VITALS: BP 168/91
[2018-12-21] MEDS: CLONIDINE 0.1MG TABLET PO PRN (17:29)
[2018-12-21 20:00] VITALS: BP 158/87
[2018-12-21] MEDS: ATORVASTATIN CALCIUM 10MG TABLET PO SCH (20:40)
[2018-12-21] MEDS ORDERED: EPOETIN ALFA 10000UNITS/ML VIAL SUBCUT NR (21:00)
[2018-12-22] VITALS: BP 146/83
[2018-12-22] MEDS: LORAZEPAM 0.5MG TABLET PO PRN (00:25)
[2018-12-22] MEDS: NITROGLYCERIN OINT 1GM/INCH UDPKT TD SCH ×4 (00:25→18:46)
[2018-12-22 04:00] VITALS: BP 132/71
[2018-12-22] MEDS: CLONIDINE 0.1MG TABLET PO SCH ×3 (05:39→20:18)
[2018-12-22] MEDS: DOCUSATE SODIUM 100MG CAPSULE PO PRN ×2 (05:40→10:10)
[2018-12-22] MEDS: HYDRALAZINE HCL 50MG TABLET PO SCH ×3 (05:40→20:18)
[2018-12-22] MEDS: OMEPRAZOLE 20MG CAPSULE EXTENDED RELEASE PO SCH (05:40)
[2018-12-22 08:00] VITALS: BP 170/90
[2018-12-22] MEDS: METRONIDAZOLE 500MG TABLET PO SCH ×2 (09:53→20:17)
[2018-12-22] MEDS: HEPARIN 5000 UNITS/ML VIAL SUBCUT SCH ×2 (09:53→20:17)
[2018-12-22] MEDS: ASPIRIN 81MG TABLET PO SCH (09:53)
[2018-12-22] MEDS: AMLODIPINE 10MG TABLET PO SCH (09:54)
[2018-12-22] MEDS: ACETAMINOPHEN 325MG TABLET PO PRN (10:10)
[2018-12-22 12:00] VITALS: BP 147/86
[2018-12-22 12:34] LABS: BASOPHILS % 0.5 % (0.0-2.0); EOSINOPHILS % 4.3 % (0.0-5.0); HEMATOCRIT. 28.6 % (42.0-52.0); HEMOGLOBIN. 9.2 g/dL (14.0-18.0); LYMPHOCYTES % 30.5 % (20.0-50.0); MEAN CORPUSCULAR HEMOGLOBIN 27.4 pg (28.0-32.0); MEAN CORPUSCULAR VOLUME 84.8 fL (80.0-94.0); MEAN PLATELET VOLUME 7.1 fl (7.4-10.4); MONOCYTES % 11.1 % (2.0-8.0); NEUTROPHILS % 53.6 % (40.0-76.0); PLATELET 216 x1000/uL (130-400); RED BLOOD CELL COUNT 3.37 mill/uL (4.7-6.1); RED CELL DISTRIBUTION WIDTH 17.3 % (11.6-14.6)
[2018-12-22] MEDS: DEXT 5%/0.45% NACL 1000ML 1,000 ML IV SCH (12:50)
[2018-12-22] MEDS: LEVOFLOXACIN 250MG PREMIX 50 ML IV SCH (14:57)
[2018-12-22 16:00] VITALS: BP 138/78
[2018-12-22 20:00] VITALS: BP 160/89
[2018-12-22] MEDS: ATORVASTATIN CALCIUM 10MG TABLET PO SCH (20:17)
[2018-12-23] VITALS (13 sets, daily range): BP systolic 138–202; BP diastolic 73–116
[2018-12-23] MEDS: NITROGLYCERIN OINT 1GM/INCH UDPKT TD SCH ×5 (00:11→18:24)
[2018-12-23] MEDS: CLONIDINE 0.1MG TABLET PO SCH ×3 (05:30→20:18)
[2018-12-23] MEDS: HYDRALAZINE HCL 50MG TABLET PO SCH ×3 (05:31→20:18)
[2018-12-23] MEDS: OMEPRAZOLE 20MG CAPSULE EXTENDED RELEASE PO SCH (06:26)
[2018-12-23 06:33] LABS: HEMATOCRIT 28.6 % (42.0-52.0); HEMOGLOBIN 9.4 g/dL (14.0-18.0); MEAN CORPUSCULAR HEMOGLOBIN 27.7 pg (28.0-32.0); MEAN CORPUSCULAR VOLUME 84.4 fL (80.0-94.0); PLATELET 221 x1000/uL (130-400); RED BLOOD CELL COUNT 3.39 mill/uL (4.7-6.1)
[2018-12-23 06:43] LABS: INR 1.1; PROTHROMBIN TIME 10.9 sec (9.1-11.1)
[2018-12-23] MEDS: AMLODIPINE 10MG TABLET PO SCH (08:08)
[2018-12-23] MEDS: METRONIDAZOLE 500MG TABLET PO SCH ×2 (08:09→20:18)
[2018-12-23] MEDS ORDERED: LIDOCAINE HCL 1% 20ML VIAL (Pyxis) INJ ONE (08:15)
[2018-12-23] MEDS ORDERED: SODIUM BICARBONATE 4% (2.4MEQ) 5ML VIAL IV ONE (08:15)
[2018-12-23] MEDS ORDERED: FENTANYL CITRATE/PF 50MCG/ML 2ML VIAL IV ONE (08:50)
[2018-12-23] MEDS ORDERED: FENTANYL CITRATE/PF 50MCG/ML 2ML VIAL ONE (08:57)
[2018-12-23] MEDS: HEPARIN 5000 UNITS/ML VIAL SUBCUT SCH ×2 (09:00→20:17)
[2018-12-23] MEDS: ASPIRIN 81MG TABLET PO SCH (09:00)
[2018-12-23] MEDS ORDERED: FENTANYL CITRATE/PF 50MCG/ML 2ML VIAL IV SCH (09:15)
[2018-12-23] MEDS: ACETAMINOPHEN 325MG TABLET PO PRN (10:40)
[2018-12-23 13:05] LABS: HEPATITIS B SURFACE AB 145.8 mIU/mL
[2018-12-23 13:15] LABS: HEPATITIS B SURFACE ANTIGEN NEGATIVE
[2018-12-23] MEDS: LORAZEPAM 0.5MG TABLET PO PRN (20:17)
[2018-12-23] MEDS: ATORVASTATIN CALCIUM 10MG TABLET PO SCH (20:18)
[2018-12-23] MEDS ORDERED: EPOETIN ALFA 10000UNITS/ML VIAL SUBCUT SCH (21:00)
[2018-12-24] VITALS (7 sets, daily range): BP systolic 127–144; BP diastolic 61–93
[2018-12-24] MEDS: NITROGLYCERIN OINT 1GM/INCH UDPKT TD SCH ×4 (00:28→17:10)
[2018-12-24] MEDS: ACETAMINOPHEN 325MG TABLET PO PRN (02:27)
[2018-12-24] MEDS: OMEPRAZOLE 20MG CAPSULE EXTENDED RELEASE PO SCH (06:20)
[2018-12-24] MEDS: HYDRALAZINE HCL 50MG TABLET PO SCH ×2 (06:20→11:58)
[2018-12-24] MEDS: CLONIDINE 0.1MG TABLET PO SCH ×2 (06:20→11:58)
[2018-12-24 06:50] LABS: HEMATOCRIT 27.2 % (42.0-52.0); HEMOGLOBIN 8.9 g/dL (14.0-18.0); MEAN CORPUSCULAR HEMOGLOBIN 27.6 pg (28.0-32.0); MEAN CORPUSCULAR VOLUME 84.7 fL (80.0-94.0); PLATELET 203 x1000/uL (130-400); RED BLOOD CELL COUNT 3.21 mill/uL (4.7-6.1); RED CELL DISTRIBUTION WIDTH 16.7 % (11.6-14.6)
[2018-12-24] MEDS: ASPIRIN 81MG TABLET PO SCH (08:57)
[2018-12-24] MEDS: METRONIDAZOLE 500MG TABLET PO SCH ×2 (08:57→20:09)
[2018-12-24] MEDS: AMLODIPINE 10MG TABLET PO SCH (08:57)
[2018-12-24] MEDS: HEPARIN 5000 UNITS/ML VIAL SUBCUT SCH ×2 (09:06→20:10)
[2018-12-24] MEDS ORDERED: HYDROCODONE/ACETAMINOPHEN 5/325MG TABLET PO PRN (09:15)
[2018-12-24] MEDS: LEVOFLOXACIN 250MG PREMIX 50 ML IV SCH (12:04)
[2018-12-24] MEDS: ATORVASTATIN CALCIUM 10MG TABLET PO SCH (20:09)
[2018-12-25 08:17] LABS: HIV SCREEN 4G Non Reactive (Non Reactive)
== END 2018-12-24 20:30 | disposition home or self-care (01) | DRG 673 ==
LOC: ER 06:10 → 6EST 10:39 → EDBEDREQ 11:27 → ENRESERV 11:48 → 8WST 15:00
PROVIDERS: ADMIT Internal Medicine; ATTEND Internal Medicine
PROC: 0JH63XZ Insertion of Tunneled Vascular Access Device into Chest Subcutaneous Tissue and Fascia, Percutaneous Approach (ICD-10-PCS; principal; 2018-12-23)
PROC: 02HV33Z Insertion of Infusion Device into Superior Vena Cava, Percutaneous Approach (ICD-10-PCS; 2018-12-23)
PROC: B518ZZA Fluoroscopy of Superior Vena Cava, Guidance (ICD-10-PCS; 2018-12-23)
PROC: B548ZZA Ultrasonography of Superior Vena Cava, Guidance (ICD-10-PCS; 2018-12-23)
PROC: 5A1D70Z Performance of Urinary Filtration, Intermittent, Less than 6 Hours Per Day (ICD-10-PCS; 2018-12-23)
DX: N17.9 Acute kidney failure, unspecified (principal); G93.41 Metabolic encephalopathy; E87.2 Acidosis; N18.4 Chronic kidney disease, stage 4 (severe); F03.90 Unspecified dementia, unspecified severity, without behavioral disturbance, psychotic disturbance, mood disturbance, and anxiety; D64.9 Anemia, unspecified; N28.1 Cyst of kidney, acquired; R80.9 Proteinuria, unspecified; M48.061 Spinal stenosis, lumbar region without neurogenic claudication; R10.30 Lower abdominal pain, unspecified; N32.89 Other specified disorders of bladder; K40.90 Unilateral inguinal hernia, without obstruction or gangrene, not specified as recurrent; I12.9 Hypertensive chronic kidney disease with stage 1 through stage 4 chronic kidney disease, or unspecified chronic kidney disease; E78.5 Hyperlipidemia, unspecified; J45.909 Unspecified asthma, uncomplicated; M47.816 Spondylosis without myelopathy or radiculopathy, lumbar region; R32 Unspecified urinary incontinence; Z85.46 Personal history of malignant neoplasm of prostate; Z86.73 Personal history of transient ischemic attack (TIA), and cerebral infarction without residual deficits; Z90.49 Acquired absence of other specified parts of digestive tract; Z88.0 Allergy status to penicillin; Z88.6 Allergy status to analgesic agent; Z90.5 Acquired absence of kidney; Z79.899 Other long term (current) drug therapy; Z79.82 Long term (current) use of aspirin; Z87.440 Personal history of urinary (tract) infections
CPT/HCPCS: 36415; 36558; 71045; 72131; 74176; 76770; 76937; 77001; 80048; 80061; 80305; 82962; 83605; 84439; 84443; 85027; 86705; 86706; 86803; 87015; 87045; 87340; 87389; 87427; 87449; 87493; 93005; 93306; 96361; 96374; 96376; 97162; 99152; 99153; 99285; C1750; C1769; J0360; J0885; J1642; J1644; J1956; J3010; J3490; J7030; J7050; G0500

== ENCOUNTER 2019-02-11 12:53 | Inpatient (IN) | payer MEDICARE ==
[~2019-02-11] VITALS: Ht 175.3 cm; Wt 90.0 kg
[2019-02-11] MEDS ORDERED: SODIUM CHLORIDE 0.9% 1,000 ML IV ONE (13:52)
[2019-02-11] MEDS ORDERED: MORPHINE SULFATE 4 MG/ML CPJ (NOT FOR IM USE) IV STA (13:52)
[2019-02-11] MEDS ORDERED: ONDANSETRON HCL 4MG/2ML INJ IV STA (13:52)
[2019-02-11 14:22] LABS: BASOPHILS % 0.9 % (0.0-2.0); EOSINOPHILS % 3.9 % (0.0-5.0); HEMATOCRIT. 34.1 % (42.0-52.0); HEMOGLOBIN. 11.1 g/dL (14.0-18.0); MEAN CORPUSCULAR HEMOGLOBIN 27.1 pg (28.0-32.0); MEAN CORPUSCULAR VOLUME 83.3 fL (80.0-94.0); MONOCYTES % 8.5 % (2.0-8.0); NEUTROPHILS % 61.7 % (40.0-76.0); PLATELET 243 x1000/uL (130-400); RED BLOOD CELL COUNT 4.09 mill/uL (4.7-6.1); RED CELL DISTRIBUTION WIDTH 17.2 % (11.6-14.6)
[2019-02-11 14:28] LABS: CHLORIDE 113 mEq/L (98-107); PROTHROMBIN TIME 10.6 sec (9.6-11.0)
[2019-02-11 15:13] LABS: CLARITY URINE CLEAR (CLEAR); COLOR URINE YELLOW (YELLOW); KETONES URINE NEGATIVE (NEGATIVE); LEUKOCYTE ESTERASE URINE NEGATIVE (NEGATIVE); NITRITE URINE NEGATIVE (NEGATIVE); OCCULT BLOOD URINE TRACE (NEGATIVE); PROTEIN URINE 3+ (NEGATIVE); SPECIFIC GRAVITY URINE 1.014 (1.005-1.030); UROBILINOGEN URINE 0.2 E.U./dL (0.2-1.0)
[2019-02-11] MEDS ORDERED: MORPHINE SULFATE 4 MG/ML CPJ (NOT FOR IM USE) IV ONE (18:30)
[2019-02-11] MEDS ORDERED: CLONIDINE 0.1MG TABLET PO ONE (18:30)
[2019-02-11] MEDS ORDERED: CLONIDINE 0.2MG TABLET PO NR (20:52)
[2019-02-11] MEDS ORDERED: MORPHINE SULFATE 2 MG/ML CPJ (NOT FOR IM USE) IV NR (20:52)
[2019-02-11 23:10] VITALS: BP 197/108
[2019-02-12] MEDS ORDERED: ONDANSETRON HCL 4MG/2ML INJ IV PRN (00:30)
[2019-02-12] MEDS ORDERED: DEXTROSE 50% WATER 50ML SYRINGE IV PRN (00:30)
[2019-02-12] MEDS ORDERED: HYDRALAZINE 20MG/ML VIAL IV PRN (00:30)
[2019-02-12] MEDS ORDERED: TRAZODONE HCL 50MG TABLET PO PRN (00:45)
[2019-02-12] MEDS: TRAMADOL 50MG TABLET PO PRN ×2 (00:50→11:18)
[2019-02-12 04:00] VITALS: BP 175/97
[2019-02-12] MEDS ORDERED: HYDRALAZINE HCL 25MG TABLET PO SCH (06:00)
[2019-02-12] MEDS: OMEPRAZOLE 20MG CAPSULE EXTENDED RELEASE PO SCH (06:22)
[2019-02-12] MEDS: BLOOD SUGAR DIAGNOSTIC STRIP TEST SCH ×2 (06:22→12:20)
[2019-02-12] MEDS: INSULIN LISPRO 100 UNITS/ML SUBCUT SCH ×2 (07:50→12:38)
[2019-02-12 08:15] LABS: HEMOGLOBIN. 10.7 g/dL (14.0-18.0); MEAN CORPUSCULAR HEMOGLOBIN 27.1 pg (28.0-32.0); MEAN CORPUSCULAR VOLUME 83.8 fL (80.0-94.0); MEAN PLATELET VOLUME 7.4 fl (7.4-10.4); PLATELET 193 x1000/uL (130-400); RED BLOOD CELL COUNT 3.94 mill/uL (4.7-6.1); RED CELL DISTRIBUTION WIDTH 16.9 % (11.6-14.6)
[2019-02-12 08:40] VITALS: BP 195/87
[2019-02-12] MEDS ORDERED: OXYBUTYNIN CHLORIDE 10 MG PO SCH (09:00)
[2019-02-12 09:23] LABS: CHLORIDE 114 mEq/L (98-107)
[2019-02-12] MEDS: VENLAFAXINE HCL 37.5MG SR CAPSULE 24HR PO SCH (09:28)
[2019-02-12] MEDS: OXYBUTYNIN CHLORIDE 5MG TABLET PO SCH ×2 (09:29→19:30)
[2019-02-12] MEDS: ASPIRIN 81MG EC TABLET PO SCH (09:29)
[2019-02-12] MEDS: AMLODIPINE 10MG TABLET PO SCH (09:29)
[2019-02-12 09:35] LABS: T4 FREE 0.97 ng/dL (0.76-1.46)
[2019-02-12] MEDS ORDERED: CLONIDINE 0.1MG TABLET PO PRN (10:00)
[2019-02-12] MEDS ORDERED: HYDRALAZINE 20MG/ML VIAL IV NR (11:00)
[2019-02-12] MEDS ORDERED: CLONIDINE HCL 0.3MG/24HR PATCH TD SCH (12:00)
[2019-02-12 12:14] VITALS: BP 189/97
[2019-02-12] MEDS ORDERED: MORPHINE SULFATE 2 MG/ML CPJ (NOT FOR IM USE) IV PRN (13:00)
[2019-02-12 14:12] LABS: PLATELET ESTIMATE NORMAL
[2019-02-12 15:29] LABS: BG BASE EXCESS -7.7 mmol/L (-2.0-2.0); BG CARBOXYHEMOGLOBIN 0.6 % (0.5-1.5); BG DEOXYHEMOGLOBIN 4.6 % (0.0-5.0); BG FRACTION INSPIRED OXYGEN 21; BG HCO3 ACT 17.1 mmol/L (22.0-26.0); BG METHEMOGLOBIN 0.3 % (0.0-1.5); BG OXYGEN SATURATION 95.4 % (92.0-98.5); BG OXYHEMOGLOBIN 94.5 % (94.0-97.0); BG PCO2 32.6 mmHg (35.0-45.0); BG PH 7.338 (7.350-7.450); BG PO2 83.9 mmHg (75.0-100.0); BG SAMPLE SITE RIGHT BRACHIAL; BG TOTAL HEMOGLOBIN 10.9 g/dL (12.0-18.0); BG VENT MODE ROOM AIR
[2019-02-12 16:02] VITALS: BP 159/86
[2019-02-12] MEDS: NITROGLYCERIN OINT 1GM/INCH UDPKT TD SCH ×2 (17:06→21:00)
[2019-02-12] MEDS: HYDRALAZINE HCL 25MG TABLET PO SCH ×2 (17:06→21:00)
[2019-02-12 20:00] VITALS: BP 132/87
[2019-02-12] MEDS ORDERED: ATORVASTATIN CALCIUM 10MG TABLET PO SCH (21:00)
[2019-02-12] MEDS ORDERED: MEDICATION NOT ON FORMULARY EA (Simvastatin 20 MG) PO SCH (21:00)
[2019-02-13] VITALS: BP 129/77
[2019-02-13 04:00] VITALS: BP 144/89
[2019-02-13] MEDS: HYDRALAZINE HCL 25MG TABLET PO SCH ×2 (05:35→13:41)
[2019-02-13] MEDS: NITROGLYCERIN OINT 1GM/INCH UDPKT TD SCH ×2 (05:35→13:41)
[2019-02-13] MEDS: OMEPRAZOLE 20MG CAPSULE EXTENDED RELEASE PO SCH (06:20)
[2019-02-13 07:09] LABS: HEMATOCRIT 30.2 % (42.0-52.0); HEMOGLOBIN 9.8 g/dL (14.0-18.0); MEAN CORPUSCULAR HEMOGLOBIN 26.9 pg (28.0-32.0); MEAN CORPUSCULAR VOLUME 82.8 fL (80.0-94.0); PLATELET 219 x1000/uL (130-400); RED BLOOD CELL COUNT 3.65 mill/uL (4.7-6.1); RED CELL DISTRIBUTION WIDTH 17.1 % (11.6-14.6)
[2019-02-13] MEDS: ASPIRIN 81MG EC TABLET PO SCH (07:56)
[2019-02-13] MEDS: OXYBUTYNIN CHLORIDE 5MG TABLET PO SCH ×2 (07:56→18:48)
[2019-02-13] MEDS: AMLODIPINE 10MG TABLET PO SCH (07:56)
[2019-02-13] MEDS: VENLAFAXINE HCL 37.5MG SR CAPSULE 24HR PO SCH (07:58)
[2019-02-13 08:00] VITALS: BP 174/89
[2019-02-13 12:00] VITALS: BP 162/92
[2019-02-13 16:00] VITALS: BP 155/81
[2019-02-13 17:03] VITALS: BP 155/81
== END 2019-02-13 19:05 | disposition home or self-care (01) | DRG 394 ==
LOC: ER 12:53 → 6WST 18:30 → EDBEDREQ 18:31 → ENRESERV 22:29
PROVIDERS: ADMIT Internal Medicine; ATTEND Internal Medicine
DX: K40.90 Unilateral inguinal hernia, without obstruction or gangrene, not specified as recurrent (principal); G93.49 Other encephalopathy; N17.9 Acute kidney failure, unspecified; N18.5 Chronic kidney disease, stage 5; I69.354 Hemiplegia and hemiparesis following cerebral infarction affecting left non-dominant side; R19.09 Other intra-abdominal and pelvic swelling, mass and lump; N32.89 Other specified disorders of bladder; R26.9 Unspecified abnormalities of gait and mobility; N28.1 Cyst of kidney, acquired; R80.9 Proteinuria, unspecified; R33.9 Retention of urine, unspecified; D64.9 Anemia, unspecified; E11.22 Type 2 diabetes mellitus with diabetic chronic kidney disease; E86.0 Dehydration; F03.90 Unspecified dementia, unspecified severity, without behavioral disturbance, psychotic disturbance, mood disturbance, and anxiety; I12.9 Hypertensive chronic kidney disease with stage 1 through stage 4 chronic kidney disease, or unspecified chronic kidney disease; I25.10 Atherosclerotic heart disease of native coronary artery without angina pectoris; J44.9 Chronic obstructive pulmonary disease, unspecified; K57.90 Diverticulosis of intestine, part unspecified, without perforation or abscess without bleeding; M48.061 Spinal stenosis, lumbar region without neurogenic claudication; Z79.899 Other long term (current) drug therapy; Z87.440 Personal history of urinary (tract) infections; Z88.0 Allergy status to penicillin; Z88.8 Allergy status to other drugs, medicaments and biological substances; Z90.49 Acquired absence of other specified parts of digestive tract; Z90.5 Acquired absence of kidney; Z90.79 Acquired absence of other genital organ(s); Z99.2 Dependence on renal dialysis
CPT/HCPCS: 36415; 36600; 71045; 74176; 76770; 80048; 82375; 82805; 82962; 83605; 84439; 84443; 84484; 85027; 93005; 93923; 93970; 97162; J0360; J2270; J2405; J7030